=== PATIENT | male | born 1955 | race Hispanic/Latino ===

== ENCOUNTER 2017-05-29 07:31 | Outpatient (CLI) | payer OTHER ==
--- NOTE | 2017-05-29 09:23 | XRay Report ---
XRAY RIGHT KNEE 4 THREE VIEWS: 05/29/17 CLINICAL: Right knee pain. FINDINGS: Medial and lateral joint space narrowing with small osteophytes. Calcific densities of the lateral joint space are suspicious for loose bodies.However, no joint effusion. No fracture or dislocation. Moderate patellofemoral joint arthritis. Infrapatellar and suprapatellar subcutaneous soft tissue edema. IMPRESSION: Moderate osteoarthritis and possible loose bodies of the lateral joint space.
== END 2017-05-29 07:32 | disposition home or self-care (01) ==
LOC: SPVIMAG 07:31
PROVIDERS: ATTEND Orthopaedic Surgery Sports Medicine
DX: M17.11 Unilateral primary osteoarthritis, right knee (principal)